=== PATIENT | male | born 1940 | race Caucasian/White ===

== ENCOUNTER → 2024-09-16 | Emergency (ER) | payer OTHER, MEDICARE ==
[~2024-09-16] VITALS: Ht 175.3 cm; Wt 111.0 kg
[~2024-09-16] MED LIST: ACET-3414; ASCO100031 PO; ATOR10TA87 PO; CYAN25006 SL; DOCU-337 PO; LORA10TA7 PO; LOSA-415 PO; MULT-1172 PO; SITA100T15 PO; [UNRECOGNIZED DRUG - OTHER] PO
[2024-09-16 10:51] VITALS: TEMP 97.8
[2024-09-16 12:18] LABS: BASOPHILS % (AUTO) 0.5 % (0-1); EOSINOPHILS # (AUTO) 0.1 X10'3 (0-0.9); EOSINOPHILS % (AUTO) 1.2 % (0-6); HEMATOCRIT 51.3 % (42.0-52.0); HEMOGLOBIN 16.7 g/dl (14.0-17.9); LYMPHOCYTES # (AUTO) 1.2 X10'3 (1.1-4.8); LYMPHOCYTES % (AUTO) 13.2 % (21-51); MEAN CORPUSCULAR HEMOGLOBIN 29.9 PG (27.0-31.0); MEAN CORPUSCULAR HGB CONC 32.6 g/dL (33.0-36.5); MEAN CORPUSCULAR VOLUME 91.7 FL (78-98); MEAN PLATELET VOLUME 7.9 FL (7.4-10.4); MONOCYTES # (AUTO) 0.9 X10'3 (0-0.9); NEUTROPHILS % (AUTO) 75.1 % (42-75); PLATELET COUNT 197 X10'3 (140-440); RED BLOOD COUNT 5.59 X10'6 (4.70-6.10); RED CELL DISTRIBUTION WIDTH 14.9 % (11.5-14.5); WHITE BLOOD COUNT 9.3 X10'3 (4.5-11.0)
[2024-09-16 12:44] LABS: APTT 31 SECONDS (22-32); D-DIMER 0.82 MG/L FEU (0-0.50); INR 1.1 INR; PROTHROMBIN TIME 11.9 SECONDS (9.0-12.0)
[2024-09-16 12:49] LABS: ALBUMIN 3.5 G/DL (3.4-5.0); ANION GAP 9 (8-16); BLOOD UREA NITROGEN 31 MG/DL (7-18); BUN/CREATININE RATIO 24.2 (10.0-20.0); CALCIUM 8.8 MG/DL (8.5-10.1); CHLORIDE 107 MMOL/L (99-107); CREATININE 1.28 MG/DL (0.60-1.10); GLUCOSE 124 MG/DL (70-104); SODIUM 140 MMOL/L (135-145); TOTAL CARBON DIOXIDE 23.6 MMOL/L (24-32); eCRCL 42 ML/MIN; eGFR 53 ML/MIN
[2024-09-16 12:51] LABS: POTASSIUM 4.4 MMOL/L (3.5-5.1)
[2024-09-16 13:35] VITALS: BP 132/88; O2SAT 98
[2024-09-16] MEDS: aspirin 325mg tablet, delayed-release (Ecotrin) PO ONE (14:03)
[2024-09-16] MEDS: acetaminophen 325mg tablet PO ONE (14:04)
[2024-09-16 14:15] VITALS: PULSE 91; RESP 18
== END | disposition home or self-care (01) ==
LOC: ER 10:40
DX: M79.605 Pain in left leg (principal); M79.89 Other specified soft tissue disorders; E11.9 Type 2 diabetes mellitus without complications; I10 Essential (primary) hypertension; Z90.89 Acquired absence of other organs; Z79.899 Other long term (current) drug therapy; Z98.890 Other specified postprocedural states
CPT/HCPCS: 36415; 80048; 85025; 85379; 85610; 85730; 93971; 99284; J7030